=== PATIENT | male | born 1955 | race Caucasian/White ===

== ENCOUNTER 2016-10-02 06:28 | Day surgery (SDC) | payer BC, OTHER ==
[~2016-10-02] VITALS: Ht 177.8 cm; Wt 113.9 kg
[~2016-10-02 06:28] MED LIST: CEFAZOLIN 2000 MG/60 ML D5W 60 ML IV SCH; GABA800T PO; HYDR25TA5 PO; LSN20 PO; NIFE15TA PO; OXYC-164 PO; SODIUM CHLORIDE 0.9% 1000ML 1,000 ML IV SCH; SPIR25TA PO
[2016-10-02 06:46] VITALS: BP 139/84; PULSE 64; TEMP 36.6; O2SAT 96; Ht 177.8 cm; Wt 113.9 kg
[2016-10-02] MEDS ORDERED: MIDAZOLAM HCL 1 MG/ML 2ML VIAL ONE (07:41)
[2016-10-02] MEDS ORDERED: FENTANYL CITRATE INJ 50 MCG/1 ML 2 ML VIAL ONE (07:41)
[2016-10-02 07:49] VITALS: BP 139/84; PULSE 64; TEMP 36.6; O2SAT 96
--- NOTE | 2016-10-02 07:59 | Procedure Note ---
Pre-Mod Sedation Assessment General Date of Moderate Sedation: Oct 02, 2016. Vital Signs: Vital Signs Past 12 Hours Date Time Temp Pulse Resp B/P Pulse Ox O2 Delivery O2 Flow Rate FiO2 10/02/16 07:49 36.6 64 18 139/84 96 Room Air 10/02/16 06:46 36.6 64 18 139/84 96 Room Air Pre-Sedation Airway Assessment Oral Cavity: Capped Teeth Short Thick Neck: No Hx of Sleep Apnea: No Smoking Status: Former Smoker Mallampati Classification: Class I ASA Classification: Class II Notes The planned sedation has been discussed with the patient and consent obtained. I have identified the patient, determined the appropriateness of sedation and have assessed the patient immediately prior to the procedure. All medicine(s) and interventions are by my order.
--- NOTE | 2016-10-02 07:59 | History and Physical ---
History & Physical Date of Service Oct 02, 2016. History & Physical Chief Complaint: lymphoma, post infusaport History of Present Illness The patient is a 59 year old male dx'ed with lymphoma, and underwent an infusaport insertion. Pt is here now for removal of his infusaport. Denies ORELLANA , fever, chills, chest pain, SOB, abd pain, N/V, rest pain claudication, other complaints. Allergies Coded Allergies: No Known Allergies (Unverified , 02/23/14) Surgical / Medical History Hx Cardiac Surgery: No Hx Abdominal Surgery: No Hx Cancer Surgery: No Hx Thoracic Surgery: No Hx Orthopedic: No Hx Urinary Tract Surgery: No HX Other Surgery: Yes (NODE BX,HERNIA,TONSILLECTOMY) Past Medical/Surgical History: Blood Dyscrasias Family History Noncontributory Social History Smoking Status: Former Smoker Hx Tobacco Use In Past Year?: Yes Hx Alcohol Use - Type & Amnt: Yes Hx Substance Use -Type & Amnt: Yes (YOUNG) Review of Systems Constitutional: No chills, No diaphoresis Skin: No change in color Eyes: No photophobia, No visual changes ENMT: No rhinorrhea, No sore throat Respiratory: No cough, No HUDSON, No hemoptysis, No short of breath Cardiovascular: No chest pain, No palpitations, No syncope, No edema, No intermittent claudication Gastrointestinal: No abdominal pain, No diarrhea, No nausea, No vomiting Neurologic: No dizziness, No headache, No lethargy, No numbness Physical Exam: Constitutional: General Apperance: heathly-appearing, well-nourished, well-developed Level of Distress: NAD Ambulation: ambulating normally Psychiatric: Mental Status: active & alert, normal mood, normal affect Orientation: oriented except where noted, to time, to place, to person Memory: recent memory normal, remote memory normal Head: normocephalic, atraumatic Eyes: EOM: EOMI ENMT: normal ENT inspection, hearing grossly normal Neck: supple, trachea midline Lungs: Respiratory effort: no dyspnea, good air movement Auscultation: breath sounds normal, CTA except as noted, no wheezing, no rales/crackles, no rhonchi Cardiovascular: Apical Impulse: not displaced Heart Auscultation: RRR, no murmurs, no rubs, no gallops Peripheral Pulses: Pulses: full and equal, in all extremities except if noted Bruits: none appreciated Carotid Pulse: normal on the left, normal on the right Brachial Pulses: normal on the left, normal on the right Radial Pulse: normal on the left, normal on the right Femoral Pulse: normal on the left, normal on the right Posterior Tibialis Pulse: normal on the left, normal on the right Dorsalis Pedis Pulse: normal on the left, normal on the right Abdomen: Bowel Sounds: normal Inspection & Palpation: soft, non-distended, no tenderness, guarding & rebound Musculoskeletal: normal strength (5/5 throughout), normal tone Extremities: Upper Right: no cyanosis, no edema, no varicosities Upper Left: no cyanosis, no edema, no varicosities Lower Right: no cyanosis, no edema, no varicosities Lower Left: no cyanosis, no edema, no varicosities Neurologic: Cranial Nerves: grossly intact Sensation: grossly intact ASSESSMENT and PLAN: Lymphoma Post infusaport insertion Plan: Pt admitted for infusaport removal today. Procedure, risks, benefits, and alternatives were discussed with pt and present. Pt expresses understanding and agreement.
[2016-10-02] MEDS ORDERED: LIDOCAINE HCL 1% 20 ML VIAL ONE (08:20)
[2016-10-02] MEDS ORDERED: MIDAZOLAM HCL 1 MG/ML 2ML VIAL IV ONE (08:32)
[2016-10-02] MEDS ORDERED: FENTANYL CITRATE INJ 50 MCG/1 ML 2 ML VIAL IV ONE (08:32)
[2016-10-02] MEDS ORDERED: LIDOCAINE HCL 1% 20 ML VIAL INJ ONE (08:44)
--- NOTE | 2016-10-02 09:01 | Procedure Note ---
Post-Moderate Sedation Plan General Date of Moderate Sedation Oct 02, 2016. Vital Signs: Vital Signs Past 12 Hours Date Time Temp Pulse Resp B/P Pulse Ox O2 Delivery O2 Flow Rate FiO2 10/02/16 07:49 36.6 64 18 139/84 96 Room Air 10/02/16 06:46 36.6 64 18 139/84 96 Room Air Review - Discharge Plan Post Moderate Sedation Plan: On clinical assessment, the patient appears to have tolerated the conscious sedation without complications. Patient is recovering as anticipated. Patient will continue to be monitored by nursing and may be discharged when conscious sedation discharge criteria are met.
--- NOTE | 2016-10-02 09:04 | [facility] Post Operative Brief Note ---
Immediate Operative Summary Operative Date Oct 02, 2016. Pre-Operative Diagnosis Post Infusaport Post-Operative Diagnosis Same Procedure(s) Performed Removal of Aport, Moderate sedation from 0832 - [address] Boyer Forest Fire Officer Surgeon(s) Dr. Mccarthy Estimated Blood Loss 5 Findings entire catheter and port removed Specimens A: explant aport Anesthesia Local with moderate conscious sedation Complication(s) None Disposition
--- NOTE | 2016-10-02 09:07 | Discharge Instructions ---
Discharge Instructions Date of Service Oct 02, 2016. Visit Reason for Visit: Non-Hodgkin's Lymphoma Discharge Discharge Diagnosis / Problem: Post infusaport insertion Discharge Goals Goal(s): Therapeutic intervention Activity Recommendations Activity Limitations: per Instructions/Follow-up section Anesthesia . Post Anesthesia Instructions: If you have had General Anesthesia or IV Sedation: * Do not drive today. * Resume driving when surgeon permits. * Do not make important decisions or sign legal documents today. * Call surgeon for: 1. Temperature elevations greater than 101 degrees F. 2. Uncontrollable pain. 3. Excessive bleeding. 4. Persistent nausea and vomiting. 5. Medication intolerance (nausea, vomiting or rash). * For nausea and vomiting use only clear liquids such as: tea, soda, bouillon until nausea subsides, then gradually increase diet as tolerated. * If you have any concerns or questions, call your surgeon's office. If physician is unavailable and it is an emergency, call 911 or go to the nearest emergency room. . Instructions / Follow-Up Instructions / Follow-Up Call [phone] to schedule a follow up appointment if one not already scheduled. ACTIVITY RECOMMENDATIONS: See Above SPECIAL CARE INSTRUCTIONS: Call your doctor if: * Temperature above 101 degrees * Pain not relieved by pain medicine ordered * There is increased drainage or redness from any incision * You have any unanswered questions or concerns. Diet Recommendations Recommended Home Diet: resume previous diet Procedures Procedures Performed: Removal of Aport, Moderate sedation from 0832 - 0859 Pending Studies Studies pending at discharge: no Medical Emergencies . Who to Call and When: Medical Emergencies: If at any time you feel your situation is an emergency, please call 911 immediately. . Non-Emergent Contact Non-Emergency issues call your: Surgeon . . "Provider Documentation" section prepared by Taz Boyer. .
[2016-10-02 09:10] VITALS: BP 128/81; PULSE 60; TEMP 36.7; O2SAT 95
--- NOTE | 2016-10-02 09:14 | DIAGNOSTIC IMAGING REPORT ---
DATE OF PROCEDURE: 10/02/2016 PREOPERATIVE DIAGNOSIS: Previously placed Infusaport. POSTOPERATIVE DIAGNOSIS: Same. PROCEDURE: Removal of A-port and conscious sedation for 27 minutes. SURGEON: Dr. Taz Boyer. VOCATIONAL EDUCATION PROFESSIONAL: Dr. Vannessa Mccarthy. ESTIMATED BLOOD LOSS: 5. ANESTHESIA: Local plus conscious sedation. FLUIDS: 200 mL URINE OUTPUT: Not recorded. COMPLICATIONS: None apparent. CONDITION: Stable to PACU. INDICATIONS: Mr. Zay Mora is a 61-year-old male who previously had an Infusaport placed for chemotherapy and antibiotics. He no longer needs his port and was advised the risks and benefits of having it removed and agreed to undergo this procedure. PROCEDURE IN DETAIL: The patient was brought into the operative suite. A timeout occurred. The patient was prepped and draped in the usual fashion. The area around his Infusaport was anesthetized with local anesthetic. A small incision was made over his Infusaport, a pocket was developed, and his Infusaport was dissected out. The catheter was pulled and pressure was held. Hemostasis was obtained. The pocket was then closed with 3-0 and 4-0 Vicryl. The patient tolerated the procedure well and was then transported to PACU in stable condition. Complete removal of the catheter was verified under fluoroscopy. Dr. Taz Boyer was present for the entirety of this case.
[2016-10-02 09:40] VITALS: BP 124/89; PULSE 54; TEMP 36.6; O2SAT 96
[2016-10-02 10:05] VITALS: BP 139/82; PULSE 65; TEMP 36.7; O2SAT 96
== END 2016-10-02 10:10 | disposition home or self-care (01) ==
LOC: C.ACU 06:28
PROVIDERS: ATTEND Surgery Vascular Surgery
DX: Z45.2 Encounter for adjustment and management of vascular access device (principal); C85.90 Non-Hodgkin lymphoma, unspecified, unspecified site; Z87.891 Personal history of nicotine dependence

== ENCOUNTER 2019-07-17 05:40 | Inpatient (IN) ==
--- NOTE | 2019-06-30 11:00 | Anesthesiology Consultation ---
Date of Service June 30, 2019 Assessment & Plan Chart Review Chart Review: Pending: Refer to Additional Notes / Consult section (Lab results) and Patient seen in Pre Admission Testing History Surgery Operation Date: 07/17/19 10:15 Proposed Procedures p Left Total Knee Arthroplasty - Gama Thurman MD Height/Weight Height: 5 ft 10 in Weight: 123.4 kg Allergies Allergy/AdvReac Type Severity Reaction Status Date / Time No Known Allergies Allergy Unverified 06/27/19 15:32 Medications Home Medications Medication Instructions Recorded Confirmed Last Taken cholecalciferol (vitamin D3) 2,000 unit PO QAM 06/27/19 06/27/19 Unknown [Vitamin D3] gabapentin 800 mg PO BID 06/27/19 06/27/19 Unknown hydrochlorothiazide 12.5 mg PO QAM 06/27/19 06/27/19 Unknown lisinopril 20 mg PO QAM 06/27/19 06/27/19 Unknown meloxicam 7.5 mg PO QAM 06/27/19 06/27/19 Unknown nifedipine 60 mg PO QAM 06/27/19 06/27/19 Unknown oxycodone 10 mg PO QID PRN 06/27/19 06/27/19 Unknown spironolactone 12.5 mg PO QAM 06/27/19 06/27/19 Unknown Past Medical History Medical History (Updated 06/30/19 @ 10:58 by Sujit Rooney MD) History of lymphoma chemo --> 2013 Hypertension Obesity Osteoarthritis Temporomandibular joint click Tinnitus Past Family History Family History Other No family history of adverse response to anesthesia Past Surgical History Surgical History History of back surgery History of colonoscopy History of eye surgery History of inguinal hernia repair History of lymph node biopsy History of pelvic surgery History of removal of Port-a-Cath History of tonsillectomy History of tooth extraction History of vascular access device Social History Smoking Status: Former smoker tobacco type: cigarettes and smokeless tobacco Do You Dip or Chew Tobacco: Yes Smoking End Date: quit 27 years ago Hx Alcohol Use: Yes Alcohol type: hard liquor alcohol intake frequency: 3 or more drinks per day Alcohol Intake Frequency Comment: 5-6 drinks per day Hx Substance Use: No substance use type: does not use Physical Exam Vital Signs Last Vital Signs Temp 37.1 C 06/30/19 10:34 Pulse 62 06/30/19 10:34 Resp 18 06/30/19 10:34 BP 157/89 H 06/30/19 10:34 Pulse Ox 95 06/30/19 10:34 Testing Electrocardiogram Date: 06/30/19 Findings: + NSR @ (66)
--- NOTE | 2019-06-30 11:34 | XRay Report ---
XR chest Pre-admission PA/Lat CLINICAL HISTORY: Preoperative chest COMPARISON STUDY: Chest CT dated 05/12/2019 FINDINGS: The heart is normal in size. There is aortic tortuosity/ectasia. There is no focal pulmonar y consolidation. There is no failure. There are no pleural effusions. Postsurgical changes are presen t within the thoracic spine with posterior spinal rods.[ IMPRESSION: No active disease in the chest. ACT 112: Negative or not required by law. Electronically signed by: Marcelo Pimentel M.D. 06/30/2019 11:33 AM
[2019-06-30 11:38] LABS: Basophils # (auto) 0.05 K/uL (0-0.2); Basophils % (auto) 0.6 %; Eosinophils % (auto) 1.1 %; Hematocrit (blood only) 46.1 % (42-52); Hemoglobin 15.8 g/dL (14.0-18.0); Immature Granulocytes # (auto) 0.04 K/uL (0.00-0.02); Immature Granulocytes % (auto) 0.5 %; Lymphocytes # (auto) 1.77 K/uL (1.2-3.4); Lymphocytes % (auto) 20.3 %; Mean Corpuscular Hemoglobin 31.1 pg (25-34); Mean Corpuscular Hgb Conc 34.3 g/dL (32-36); Mean Corpuscular Volume 90.7 fL (80-100); Mean Platelet Volume 8.9 fL (7.4-10.4); Monocytes # (auto) 0.65 K/uL (0.11-0.59); Monocytes % (auto) 7.5 %; Neutrophils # (auto) 6.09 K/uL (1.4-6.5); Platelet Count 294 K/uL (130-400); RDW Coefficient of Variation 13.6 % (11.5-14.5); RDW Standard Deviation 44.9 fL (36.4-46.3); Red Blood Count 5.08 M/uL (4.7-6.1)
[2019-06-30 11:49] LABS: Albumin Level 4.1 gm/dl (3.4-5.0); BUN Creatinine Ratio 13.5 (10-20); Calcium 9.4 mg/dl (8.5-10.1); Creatinine Clr Calc Pharmacy 74.1 ml/min; Est GFR (African American) 65.8; Est GFR (Non-African American) 56.7; Potassium 3.8 mmol/L (3.5-5.1)
[2019-06-30 11:53] LABS: Partial Thromboplastin Time 26.8 Seconds (21.0-31.0); Prothrombin Time 10.6 Seconds (9.0-12.0)
[2019-06-30 11:57] LABS: Estimated Average Glucose 111 mg/dl; Hemoglobin A1C 5.5 % (4.5-5.6)
[2019-06-30 12:10] LABS: Appearance Urine Clear (Clear); Bacteria Urine Automated Negative (Negative); Bilirubin Urine Negative (Negative); Blood Urine Trace (Negative); Cast Urine Automated 0 /lpf (0-5); Color Urine Yellow; Epithelial Cell Urine Auto 0-5 /lpf (0-5); Glucose Urine UA Negative (Negative); Ketones Urine Negative (Negative); Leukocyte Esterase Urine Negative (Negative); Nitrite Urine Negative (Negative); Protein Urine Negative (Negative); RBC Urine Automated 0-4 /hpf (0-4); Specific Gravity Urine 1.007 (1.000-1.030); Urobilinogen Urine Negative (Negative); WBC Urine Automated 0 /hpf (0-5); pH Urine 6.5 (4.5-7.5)
--- NOTE | 2019-07-01 05:54 | Electrocardiogram Report ---
Test Reason : Blood Pressure : / mmHG Vent. Rate : 066 BPM Atrial Rate : 066 BPM P-R Int : 156 ms QRS Dur : 088 ms QT Int : 368 ms P-R-T Axes : 050 035 007 degrees QTc Int : 385 ms Normal sinus rhythm Normal ECG No previous ECGs available Confirmed by Sincere Christopher ([id number]) on 07/01/2019 5:54:10 AM Referred By: Gama Thurman Confirmed By:Sincere Christopher
--- NOTE | 2019-07-12 20:05 | History & Physical Report ---
Date of Service July 12, 2019 Assessment & Plan (1) Primary osteoarthritis of left knee: Treatment options were discussed. He has failed conservative measures as above. Risks, benefits and alternatives to surgery including but not limited to infection, DVT, pain, stiffness, need for revision surgery, damage to blood vessels, damage to nerves, PE, , were discussed with the patient and they wish to proceed. Plan will be for left total knee arthroplasty on 07/17/19 at [facility]. He will plan on attending outpatient PT upon discharge. We will plan on aspirin 81mg BID x 30 days post operatively for DVT prophylaxis. All questions answered. F/u post op. History of Present Illness Chief Complaint: Left knee pain Primary Care Provider: Isaias Oquendo MD Patient is a 64 year old male with PMHx significant for HTN and history of lymphoma presents with ongoing left knee pain. He has tried various conservative measures including cortisone injections, rehab, and antiinflammatory medications. Pain is affecting his daily activities and would like to proceed with left knee replacement. Patient denies headaches, sweats, fevers, chills, double vision, blurred vision, cough, sore throat, dysphagia, chest pain, sob, wheezing, n/v/d/c, numbness, tingling, fatigue, urinary symptoms, mood disorders. ROS positive for left knee pain and stiffness. Allergies Allergy/AdvReac Type Severity Reaction Status Date / Time No Known Allergies Allergy Unverified 06/27/19 15:32 Home Medications Home Medications Medication Instructions Recorded Confirmed Type cholecalciferol (vitamin D3) 2,000 unit PO QAM 06/27/19 06/27/19 History [Vitamin D3] gabapentin 800 mg PO BID 06/27/19 06/27/19 History hydrochlorothiazide 12.5 mg PO QAM 06/27/19 06/27/19 History lisinopril 20 mg PO QAM 06/27/19 06/27/19 History meloxicam 7.5 mg PO QAM 06/27/19 06/27/19 History nifedipine 60 mg PO QAM 06/27/19 06/27/19 History oxycodone 10 mg PO QID PRN 06/27/19 06/27/19 History spironolactone 12.5 mg PO QAM 06/27/19 06/27/19 History Past Med/Surg History Medical History History of lymphoma chemo --> 2013 Hypertension Obesity Osteoarthritis Temporomandibular joint click Tinnitus Surgical History History of back surgery History of colonoscopy History of eye surgery History of inguinal hernia repair History of lymph node biopsy History of pelvic surgery History of removal of Port-a-Cath History of tonsillectomy History of tooth extraction History of vascular access device Family History Other No family history of adverse response to anesthesia Social History Preferred Language: Yi Communication Ability: Effective Alternative Financing Specialist Required: No Beliefs That Will Affect Care: None Current Living Situation: Spouse Other Information That Helps Us Care for You: No Feels Safe at Home: Yes Safety Concerns: Feels Safe At This Time Smoking Status: Former smoker Tobacco Type: cigarettes and smokeless tobacco ; Do You Dip or Chew Tobacco: Yes ; Smoking End Date: quit 27 years ago ; Second Hand Exposure: Yes ; Tobacco Cessation Education Requested by Patient: No Hx Alcohol Use: Yes Alcohol type: hard liquor Hx Substance Use: No Review of Systems All systems reviewed & are unremarkable except as noted in HPI & below Physical Exam Constitutional: well developed and well nourished; no acute distress Eyes: PERRL, conjunctivae normal, anicteric sclerae ENMT: external ear and nose normal, oropharynx normal Neck: trachea midline, no thyromegaly Respiratory: normal respiratory effort, lungs clear to auscultation Cardiovascular: RRR, no murmur, no edema Musculoskeletal: Left knee: ROM 0-120, tenderness medial joint line. He is stable to valgus and varus stress tests with positive Oc's. Skin: no rashes, warm and dry Neurologic: patellar DTR's 2+ bilat, sensation intact Psychiatric: A+Ox3, euthymic affect Results & Data Laboratory Results Lab Results 06/30/19 06/30/19 06/30/19 Range/Units 10:45 10:45 10:45 WBC 8.70 (4.8-10.8) K/uL RBC 5.08 (4.7-6.1) M/uL Hgb 15.8 (14.0-18.0) g/dL Hct 46.1 (42-52) % MCV 90.7 (80-100) fL MCH 31.1 (25-34) pg MCHC 34.3 (32-36) g/dL RDW Std Deviation 44.9 (36.4-46.3) fL RDW Coeff of Stevenson 13.6 (11.5-14.5) % Plt Count 294 (130-400) K/uL MPV 8.9 (7.4-10.4) fL Immature Gran % (Auto) 0.5 % Neut % (Auto) 70.0 % Lymph % (Auto) 20.3 % Greer % (Auto) 7.5 % Eos % (Auto) 1.1 % Baso % (Auto) 0.6 % Immature Gran # (Auto) 0.04 H (0.00-0.02) K/uL Neut # (Auto) 6.09 (1.4-6.5) K/uL Lymph # (Auto) 1.77 (1.2-3.4) K/uL Greer # (Auto) 0.65 H (0.11-0.59) K/uL Eos # (Auto) 0.10 (0-0.5) K/uL Baso # (Auto) 0.05 (0-0.2) K/uL PT 10.6 (9.0-12.0) Seconds INR 1.0 (0.9-1.1) APTT 26.8 (21.0-31.0) Seconds PTT Ratio 1.0 Sodium 138 (136-145) mmol/L Potassium 3.8 (3.5-5.1) mmol/L Chloride 103 (98-107) mmol/L Carbon Dioxide 30 (21-32) mmol/L Anion Gap 5.0 (3-11) BUN 18 (7-18) mg/dl Creatinine 1.31 (0.6-1.4) mg/dl Est Cr Clr Drug Dosing 74.1 ml/min Est GFR ( Amer) 65.8 Est GFR (Non-Af Amer) 56.7 BUN/Creatinine Ratio 13.5 (10-20) Glucose 100 H (70-99) mg/dl Estimat Average Glucose mg/dl Hemoglobin A1c (4.5-5.6) % Calcium 9.4 (8.5-10.1) mg/dl Albumin 4.1 (3.4-5.0) gm/dl Urine Color Urine Appearance (Clear) Urine pH (4.5-7.5) Ur Specific Grafton (1.000-1.030) Urine Protein (Negative) Urine Glucose (UA) (Negative) Urine Ketones (Negative) Urine Blood (Negative) Urine Nitrite (Negative) Urine Bilirubin (Negative) Urine Urobilinogen (Negative) Ur Leukocyte Esterase (Negative) Urine WBC (Auto) (0-5) /hpf Urine RBC (Auto) (0-4) /hpf U Hyaline Cast (Auto) (0-5) /lpf U Epithel Cells (Auto) (0-5) /lpf Urine Bacteria (Auto) (Negative) Blood Type Antibody Screen 06/30/19 06/30/19 06/30/19 Range/Units 10:45 10:45 10:45 WBC (4.8-10.8) K/uL RBC (4.7-6.1) M/uL Hgb (14.0-18.0) g/dL Hct (42-52) % MCV (80-100) fL MCH (25-34) pg MCHC (32-36) g/dL RDW Std Deviation (36.4-46.3) fL RDW Coeff of Stevenson (11.5-14.5) % Plt Count (130-400) K/uL MPV (7.4-10.4) fL Immature Gran % (Auto) % Neut % (Auto) % Lymph % (Auto) % Greer % (Auto) % Eos % (Auto) % Baso % (Auto) % Immature Gran # (Auto) (0.00-0.02) K/uL Neut # (Auto) (1.4-6.5) K/uL Lymph # (Auto) (1.2-3.4) K/uL Greer # (Auto) (0.11-0.59) K/uL Eos # (Auto) (0-0.5) K/uL Baso # (Auto) (0-0.2) K/uL PT (9.0-12.0) Seconds INR (0.9-1.1) APTT (21.0-31.0) Seconds PTT Ratio Sodium (136-145) mmol/L Potassium (3.5-5.1) mmol/L Chloride (98-107) mmol/L Carbon Dioxide (21-32) mmol/L Anion Gap (3-11) BUN (7-18) mg/dl Creatinine (0.6-1.4) mg/dl Est Cr Clr Drug Dosing ml/min Est GFR ( Amer) Est GFR (Non-Af Amer) BUN/Creatinine Ratio (10-20) Glucose (70-99) mg/dl Estimat Average Glucose 111 mg/dl Hemoglobin A1c 5.5 (4.5-5.6) % Calcium (8.5-10.1) mg/dl Albumin (3.4-5.0) gm/dl Urine Color Yellow Urine Appearance Clear (Clear) Urine pH 6.5 (4.5-7.5) Ur Specific G[place] 1.007 (1.000-1.030) Urine Protein Negative (Negative) Urine Glucose (UA) Negative (Negative) Urine Ketones Negative (Negative) Urine Blood Trace H (Negative) Urine Nitrite Negative (Negative) Urine Bilirubin Negative (Negative) Urine Urobilinogen Negative (Negative) Ur Leukocyte Esterase Negative (Negative) Urine WBC (Auto) 0 (0-5) /hpf Urine RBC (Auto) 0-4 (0-4) /hpf U Hyaline Cast (Auto) 0 (0-5) /lpf U Epithel Cells (Auto) 0-5 (0-5) /lpf Urine Bacteria (Auto) Negative (Negative) Blood Type O Positive Antibody Screen NEGATIVE Diagnostic Findings Left knee radiographs: Bone on bone medial compartment with periarticular osteophyte formation and subchondral sclerosis.
[2019-07-17] MEDS ORDERED: LR 500ML BOLUS, THEN 15ML/HR IV SCH (06:00)
[2019-07-17] MEDS ORDERED: FAMOTIDINE 20 MG TAB PO SCH (06:00)
[2019-07-17] MEDS ORDERED: ROPIVACAINE 0.5% HCL/PF 150 MG, BUPIVACAINE 0.5% MPF 30 ML, EPINEPHrine 30MG/30ML (OR U... INSTIL SCH (06:00)
[2019-07-17] MEDS ORDERED: TRANEXAMIC ACID 1,000 MG **IV Intra-op IV SCH (06:00)
[2019-07-17] MEDS ORDERED: CeleBREX 200 MG CAP PO SCH ×2 (06:00→21:00)
[2019-07-17] MEDS ORDERED: dexAMETHasone 4 MG TAB PO SCH (06:00)
[2019-07-17] MEDS ORDERED: ACETAMINOPHEN 500 MG TAB PO SCH (06:00)
[2019-07-17] MEDS ORDERED: TRANEXAMIC ACID 1,000 MG **IV Pre-op IV SCH (06:00)
[2019-07-17] MEDS ORDERED: GABAPENTIN 300 MG CAP PO SCH (06:00)
[2019-07-17] MEDS ORDERED: METOCLOPRAMIDE HCL 10 MG TABLET PO SCH (06:00)
[2019-07-17] MEDS ORDERED: CEFAZOLIN 3000MG 72.5 ML IV SCH (06:00)
[2019-07-17] MEDS ORDERED: HYDROmorphone INJ 2 MG/ML SYR/VIAL IV PRN (06:38)
[2019-07-17] MEDS ORDERED: ONDANSETRON INJ 2 MG/ML 2 ML VIAL IV PRN ×2 (06:38→12:18)
[2019-07-17] MEDS ORDERED: ATROPINE SULFATE 0.1 MG/ML 10ML SYR IV PRN (06:38)
[2019-07-17] MEDS ORDERED: fentaNYL citrate 100 MCG/2 ML VIAL IV PRN (06:38)
[2019-07-17] MEDS ORDERED: ePHEDrine sulfate 50 MG/ML AMP IV PRN (06:38)
[2019-07-17] MEDS ORDERED: BUPIVACAINE 0.5 % 5 MG/1 ML PF 10ML VIAL ONE (06:48)
[2019-07-17] MEDS ORDERED: BUPIVACAINE/EPINEPHRINE 0.25% 1:200,000 30 ML VIAL ONE (06:48)
[2019-07-17] MEDS ORDERED: PROPOFOL IV EMULSION 10 MG/ML 20 ML VIAL IV ONE ×3 (07:53→09:28)
[2019-07-17] MEDS ORDERED: LIDOCAINE HCL 2% 2 ML VIAL/AMP(20MG/ML) INFIL ONE (07:53)
[2019-07-17] MEDS ORDERED: DEXAMETHASONE SOD INJ 4 MG/ML VIAL ONE (07:53)
[2019-07-17] MEDS ORDERED: ONDANSETRON INJ 2 MG/ML 2 ML VIAL ONE (07:53)
[2019-07-17] MEDS ORDERED: MIDAZOLAM HCL 1 MG/ML 2ML VIAL ONE ×4 (07:53→10:04)
[2019-07-17] MEDS ORDERED: fentaNYL citrate 100 MCG/2 ML VIAL ONE (07:53)
[2019-07-17] MEDS ORDERED: BACITRACIN INJ 50,000 UNIT VIAL ONE (08:04)
--- NOTE | 2019-07-17 08:33 | History & Physical Bridge Note ---
Date of Service July 17, 2019 History & Physical Bridge Note I have examined the patient, reviewed the History & Physical and in the interval since the performance of the History & Physical I have noted the following changes of clinical significance: no changes noted
[2019-07-17] MEDS ORDERED: DiphenhydrAMINE HCL 50 MG/ML VIAL ONE (09:49)
--- NOTE | 2019-07-17 10:18 | Operative Report ---
Post Operative Report Pre & Post Diagnosis Operation Date: 07/17/19 08:15 Pre-Op Diagnosis: Left Knee Primary Osteoarthritis Post-Op Diagnosis: Left Knee Primary Osteoarthritis I identified the patient and participated in the time-out.: Yes Procedure Operation Date: 07/17/19 08:15 Actual Procedures p Left Total Knee Arthroplasty(Left) - Gama Thurman MD Surgeon Gama Thurman MD Reaming Press Operator Afshin Rossi PA-C Estimated Blood Loss 20 Findings Consistent with Post-Op Diagnosis Specimens bone and tissue Drains 1 Hemovac Anesthesia Type MAC Spinal Regional Disposition Accompanied Patient To Recovery: No Disposition: Recovery Room Indications The patient is a 64-year-old male longstanding pain in the left knee. He is [id number] medial compartment. He is failed conservative measures, injection anti-inflammatories and rehab wishes to proceed with left total knee arthroplasty Description of Procedure Risks benefits and alternatives of surgery including but not limited to infection, DVT, pain, stiffness, need for surgery, damage to blood vessels, damage to nerves or risks of anesthesia were discussed with the patient and they wished to proceed. The patient was identified and the laterality was confirmed and marked. They received a preoperative antibiotic as well as a spinal anesthetic and an abductor canal block. A well-padded tourniquet was applied and then the limb was prepped and draped in standard manner with ChloraPrep. The limb was exsanguinated and the tourniquet was inflated. I made a standard anterior incision. I sharply incised the skin then utilized Bovie electrocautery to achieve hemostasis. I made a medial parapatellar arthrotomy and mobilized the patella laterally. I then excised the anterior horns of the medial and lateral meniscus as well as the infrapatellar fat pad. I elevated a portion of the MCL off of the tibia. I then pinned into place a patient-matched distal femoral cutting guide and made my distal femoral resection. I then pinned into place the 5 in 1 femoral cutting guide. I made my anterior, posterior and chamfer cuts. I then excised the cruciates and the remaining portions of the menisci. I then pinned into place a patient- matched tibial cutting guide and made my tibial resection. I then pinned into place the tibial plate a utilizing alignment hipolito to confirm rotation. I then cut for the post. Utilizing a lamina mixing and dispensing supervisor and I then removed posterior osteophytes off the femur. I then placed a trial femur into position and cut for the trochlear component. I then sequentially trialed to size the polyethylene until there was good soft tissue balancing and range of motion. I then prepared the patella with a freehand cut utilizing sagittal saw. I sized and drilled for the patella. There was good tracking to the patella no lateral release was needed. All the trial components were removed. The deep tissues were anesthetized with an ortho mix solution. Then with Simplex HV with gentamicin cement, I cemented my definitive components. Definitive components, Flor and Nephew Jasperney 2: Femur 7 Tibia 6 Poly 11 Patella 38 oval A betadine soak was performed. A deep drain was placed. The arthrotomy was closed with interrupted #1 Vicryl suture subcutaneous tissue was closed with interrupted 2-0 Vicryl suture. The skin was closed with with pavithra. An Acticoat and Kavon dressing were placed. Sterile dressings were applied. All needle and sponge counts were correct at the end of the procedure patient was transferred to the PACU in stable condition without apparent complication. The PA-C was necessary for assistance with procedure for assistance in positioning, prepping, draping, retraction and closure. I attest to the content of the Intraoperative Record and any orders documented therein. Any exceptions are noted below.
--- NOTE | 2019-07-17 11:39 | Anesthesiology Progress Note ---
Date of Service July 17, 2019 Anesthesia Post Procedure Vital Signs Vital Signs: Temp Pulse Pulse Resp BP BP Pulse Ox 07/17/19 11:35 65 15 106/69 98 07/17/19 11:20 36.7 C 67 14 111/76 96 07/17/19 11:10 65 15 107/71 99 07/17/19 11:00 36.1 C L 81 14 138/84 95 07/17/19 10:53 36.1 C L 63 16 122/75 96 07/17/19 06:46 36.9 C 72 18 144/87 H 95 Transfer of Care Handoff Completed per policy Notes Mental Status: alert / awake / arousable and participated in evaluation Patient Amnestic to Procedure: Yes Nausea / Vomiting: adequately controlled Pain: adequately controlled Airway Patency, RR, SpO2: stable & adequate BP & HR: stable & adequate Hydration State: stable & adequate Anesthetic Complications: no major complications apparent and Pt Satisfied with anesthetic care
--- NOTE | 2019-07-17 12:07 | XRay Report ---
XR knee LT 1 or 2V routine CLINICAL HISTORY: Surgical Post Op COMPARISON: None FINDINGS: Alignment of the total left knee arthroplasty is anatomic. Skin pavithra are present as wel l as surgical drains. There are no unexpected radiopaque foreign bodies. Lateral view demonstrates a subtle lucency with sclerotic margin within the proximal posterior left tibia. IMPRESSION: 1. Status post total left knee arthroplasty. Hardware intact. No unexpected radiopaque foreign bodies . 2. Subtle lucency with sclerotic margin projecting over the proximal posterior left tibia on lateral projection. This does not appear to represent a fracture and could be artifactual. However, correlati on with preoperative radiographs, if available, is recommended. ACT 112: Negative or not required by law. Electronically signed by: Pérez Post M.D. 07/17/2019 12:06 PM
[2019-07-17] MEDS ORDERED: MAGNESIUM HYDROXIDE SUSP 30 ML UDC PO PRN (12:18)
[2019-07-17] MEDS ORDERED: HYDROmorphone INJ 0.5 MG/0.5 ML SYR IV PRN (12:18)
[2019-07-17] MEDS ORDERED: METOCLOPRAMIDE HCL INJ 5 MG/ML 2 ML VIAL IV PRN (12:18)
[2019-07-17] MEDS ORDERED: TAMSULOSIN HCL 0.4 MG CAP PO PRN (12:18)
[2019-07-17] MEDS ORDERED: bisacodyL 10 MG SUPP PR PRN (12:18)
[2019-07-17] MEDS ORDERED: NALOXONE HCL 0.4 MG/1 ML VIAL/CARP IV PRN (12:18)
[2019-07-17] MEDS: SODIUM CHLORIDE 0.9% 1000ML 1,000 ML IV SCH ×2 (12:43→21:53)
[2019-07-17] MEDS: OXYCODONE HCL IR 5 MG TAB (IMMEDIATE RELEASE) PO PRN ×3 (13:27→22:51)
[2019-07-17] MEDS: ACETAMINOPHEN 500 MG TAB PO SCH ×2 (13:28→21:54)
[2019-07-17] MEDS: CEFAZOLIN 2000MG 2,000 MG/15 ML SYR IV SCH ×2 (17:11→23:38)
[2019-07-17] MEDS: GABAPENTIN 800 MG TAB PO SCH (20:34)
[2019-07-17] MEDS: ASPIRIN 81 MG ECTAB PO SCH (20:34)
[2019-07-17] MEDS: DOCUSATE SODIUM 100 MG CAP PO SCH (20:34)
[2019-07-17] MEDS: SENNA 8.6 MG TAB PO SCH (20:34)
[2019-07-18] MEDS: ACETAMINOPHEN 500 MG TAB PO SCH ×3 (04:46→21:34)
[2019-07-18] MEDS: OXYCODONE HCL IR 5 MG TAB (IMMEDIATE RELEASE) PO PRN ×5 (04:46→21:33)
[2019-07-18 04:58] LABS: Hematocrit (blood only) 36.8 % (42-52); Hemoglobin 12.3 g/dL (14.0-18.0); Mean Corpuscular Hgb Conc 33.4 g/dL (32-36); Mean Corpuscular Volume 92.7 fL (80-100); Mean Platelet Volume 8.6 fL (7.4-10.4); Platelet Count 203 K/uL (130-400); RDW Coefficient of Variation 13.6 % (11.5-14.5); RDW Standard Deviation 46.3 fL (36.4-46.3); Red Blood Count 3.97 M/uL (4.7-6.1); White Blood Count 6.93 K/uL (4.8-10.8)
[2019-07-18 05:31] LABS: BUN Creatinine Ratio 14.5 (10-20); Calcium 8.2 mg/dl (8.5-10.1); Est GFR (Non-African American) 44.9; Potassium 4.5 mmol/L (3.5-5.1)
--- NOTE | 2019-07-18 07:22 | Orthopedic Progress Note ---
Date of Service July 18, 2019 Assessment & Plan (1) Primary osteoarthritis of left knee: POD#1 Left TKA -Pain management -PT/OT -DVT prophylaxis-ASA 81mg BID x 30 days, SCDs, TEDs -Discharge planning-home with plans on OPPT, likely tomorrow when pain is better under control -AM labs-Hemoglobin 12.3, acute blood loss anemia due to surgical loss vs dilutional effect. Creatinine is elevated to 1.59 from 1.31 on preop labs. Will hold his Celebrex this morning. Will give Bolus this morning as well. Recheck labs in AM. Subjective Patient is POD#1 left TKA. He is having pain this morning and was unable to sleep. States the oxycodone tends to keep him up. He is on oxy ir chronically, usually taking 10mg BID at home. No other complaints at this time. Denies chest pain, sob, n/v/d. Review of Systems Review of Systems: All systems reviewed & are unremarkable except as noted in HPI & below Physical Exam Physical Exam: Left knee dressing is c/d/i. ALEYDA is suctioning, hemovac in place. Good dorsiflexion. Toes are mobile. No calf tenderness. Distally n/v status and sensation intact. Constitutional: well developed and well nourished; no acute distress Results & Data ([facility]) Vital Signs (Past 12 Hours) Vital Signs Temp Pulse Resp BP Pulse Ox 07/18/19 03:31 37.0 C 65 18 123/83 93 07/17/19 23:10 36.8 C 71 18 137/87 94 07/17/19 19:46 37.1 C 74 18 145/93 H 95 Laboratory Results H & H 06/30/19 07/18/19 Range/Units 10:45 04:35 Hgb 15.8 12.3 L (14.0-18.0) g/dL Hct 46.1 36.8 L (42-52) % Coagulation 06/30/19 Range/Units 10:45 INR 1.0 (0.9-1.1)
[2019-07-18] MEDS ORDERED: SODIUM CHLORIDE 0.9% 1000ML 500 ML IV ONE (07:26)
[2019-07-18] MEDS: CHOLECALCIFEROL 1,000 UNITS 25 MCG TAB PO SCH (08:33)
[2019-07-18] MEDS: lisinopriL 20 MG TAB PO SCH (08:33)
[2019-07-18] MEDS: SPIRONOLACTONE 25 MG TAB PO SCH (08:33)
[2019-07-18] MEDS: MULTIVITAMIN TAB PO SCH (08:34)
[2019-07-18] MEDS: hydroCHLOROthiazide 25 MG TAB PO SCH (08:34)
[2019-07-18] MEDS: NIFEdipine EXTENDED REL 30 MG TABCR PO SCH (08:34)
[2019-07-18] MEDS: GABAPENTIN 800 MG TAB PO SCH ×2 (08:34→20:13)
[2019-07-18] MEDS: DOCUSATE SODIUM 100 MG CAP PO SCH ×2 (08:35→20:14)
[2019-07-18] MEDS: ASPIRIN 81 MG ECTAB PO SCH ×2 (08:35→20:13)
--- NOTE | 2019-07-18 08:41 | Anesthesiology Progress Note ---
Date of Service July 18, 2019 Anesthesia Post Procedure Vital Signs Vital Signs: Temp Pulse Pulse Resp BP BP Pulse Ox 07/18/19 07:30 36.8 C 69 18 130/98 93 07/18/19 03:31 37.0 C 65 18 123/83 93 07/17/19 23:10 36.8 C 71 18 137/87 94 07/17/19 19:46 37.1 C 74 18 145/93 H 95 07/17/19 15:10 36.7 C 71 17 139/88 96 07/17/19 14:02 36.7 C 85 18 126/74 96 07/17/19 13:01 36.4 C L 76 16 141/89 H 99 07/17/19 12:30 36.5 C 73 18 137/83 100 07/17/19 12:00 36.9 C 70 18 120/78 95 07/17/19 11:35 65 15 106/69 98 07/17/19 11:20 36.7 C 67 14 111/76 96 07/17/19 11:10 65 15 107/71 99 07/17/19 11:00 36.1 C L 81 14 138/84 95 07/17/19 10:53 36.1 C L 63 16 122/75 96 Pain Intensity Left Knee: Pain Intensity: 7 Notes Mental Status: alert / awake / arousable and participated in evaluation Patient Amnestic to Procedure: Yes Nausea / Vomiting: adequately controlled Pain: adequately controlled Airway Patency, RR, SpO2: stable & adequate BP & HR: stable & adequate Hydration State: stable & adequate Neuraxial Anesthesia: was administered and sensory block resolved Anesthetic Complications: no major complications apparent and Pt Satisfied with anesthetic care
[2019-07-18] MEDS: SENNA 8.6 MG TAB PO SCH (20:13)
[2019-07-19] MEDS: OXYCODONE HCL IR 5 MG TAB (IMMEDIATE RELEASE) PO PRN ×2 (05:45→09:51)
[2019-07-19] MEDS: ACETAMINOPHEN 500 MG TAB PO SCH (05:45)
[2019-07-19 07:18] LABS: BUN Creatinine Ratio 10.4 (10-20); Creatinine Clr Calc Pharmacy 78.8 ml/min; Est GFR (Non-African American) 61.2; Potassium 3.8 mmol/L (3.5-5.1)
--- NOTE | 2019-07-19 07:40 | Orthopedic Progress Note ---
Date of Service July 19, 2019 Assessment & Plan (1) Primary osteoarthritis of left knee: POD#2 Left TKA -Pain management -PT/OT -DVT prophylaxis-ASA 81mg BID x 30 days, SCDs, TEDs -Discharge planning-plan for outpatient PT. Patient's pain control is adequate and with his creatinine normalizing, plan will be to discharge to home this morning. -AM labs- Creatinine this morning is 1.2 Subjective Postop day 2 status post left total knee arthroplasty Patient is currently sitting up in bed watching TV. Appears comfortable. He has no complaints this morning other than some mild pain in the operative knee. Denies shortness of breath, chest pain, lightheadedness. He is hoping to go home today. Physical Exam Physical Exam: Kavon dressing is clean, dry, and intact. Calves are soft and nontender. Neurovascular intact. Toes are mobile. He has good dorsiflexion and plantarflexion of the left ankle and foot. Results & Data ([facility]) Vital Signs (Past 12 Hours) Vital Signs Temp Pulse Resp BP Pulse Ox 07/19/19 06:16 37.1 C 07/19/19 06:10 37.7 C H 87 16 145/90 H 94 07/18/19 23:43 37.3 C 76 18 143/83 H 94 Laboratory Results Laboratory Results WBC 6.93 K/uL (4.8-10.8) 07/18/19 04:35 RBC 3.97 M/uL (4.7-6.1) L 07/18/19 04:35 Hgb 12.3 g/dL (14.0-18.0) L 07/18/19 04:35 Hct 36.8 % (42-52) L 07/18/19 04:35 MCV 92.7 fL (80-100) 07/18/19 04:35 MCH 31.0 pg (25-34) 07/18/19 04:35 MCHC 33.4 g/dL (32-36) 07/18/19 04:35 RDW Std Deviation 46.3 fL (36.4-46.3) 07/18/19 04:35 RDW Coeff of [place] 13.6 % (11.5-14.5) 07/18/19 04:35 Plt Count 203 K/uL (130-400) 07/18/19 04:35 MPV 8.6 fL (7.4-10.4) 07/18/19 04:35 Immature Gran % (Auto) 0.5 % 06/30/19 10:45 Neut % (Auto) 70.0 % 06/30/19 10:45 Lymph % (Auto) 20.3 % 06/30/19 10:45 [place] % (Auto) 7.5 % 06/30/19 10:45 Eos % (Auto) 1.1 % 06/30/19 10:45 Baso % (Auto) 0.6 % 06/30/19 10:45 Immature Gran # (Auto) 0.04 K/uL (0.00-0.02) H 06/30/19 10:45 Neut # (Auto) 6.09 K/uL (1.4-6.5) 06/30/19 10:45 Lymph # (Auto) 1.77 K/uL (1.2-3.4) 06/30/19 10:45 [place] # (Auto) 0.65 K/uL (0.11-0.59) H 06/30/19 10:45 Eos # (Auto) 0.10 K/uL (0-0.5) 06/30/19 10:45 Baso # (Auto) 0.05 K/uL (0-0.2) 06/30/19 10:45 PT 10.6 Seconds (9.0-12.0) 06/30/19 10:45 INR 1.0 (0.9-1.1) 06/30/19 10:45 APTT 26.8 Seconds (21.0-31.0) 06/30/19 10:45 PTT Ratio 1.0 06/30/19 10:45 Sodium 138 mmol/L (136-145) 07/19/19 05:57 Potassium 3.8 mmol/L (3.5-5.1) D 07/19/19 05:57 Chloride 106 mmol/L (98-107) 07/19/19 05:57 Carbon Dioxide 26 mmol/L (21-32) 07/19/19 05:57 Anion Gap 6.0 (3-11) 07/19/19 05:57 BUN 13 mg/dl (7-18) 07/19/19 05:57 Creatinine 1.23 mg/dl (0.6-1.4) D 07/19/19 05:57 Est Cr Clr Drug Dosing 78.8 ml/min 07/19/19 05:57 Est GFR ( Amer) 71.0 07/19/19 05:57 Est GFR (Non-Af Amer) 61.2 07/19/19 05:57 BUN/Creatinine Ratio 10.4 (10-20) 07/19/19 05:57 Glucose 102 mg/dl (70-99) H 07/19/19 05:57 Estimat Average Glucose 111 mg/dl 06/30/19 10:45 Hemoglobin A1c 5.5 % (4.5-5.6) 06/30/19 10:45 Calcium 9.0 mg/dl (8.5-10.1) 07/19/19 05:57 Albumin 4.1 gm/dl (3.4-5.0) 06/30/19 10:45 Urine Color Yellow 06/30/19 10:45 Urine Appearance Clear (Clear) 06/30/19 10:45 Urine pH 6.5 (4.5-7.5) 06/30/19 10:45 Ur Specific [place] 1.007 (1.000-1.030) 06/30/19 10:45 Urine Protein Negative (Negative) 06/30/19 10:45 Urine Glucose (UA) Negative (Negative) 06/30/19 10:45 Urine Ketones Negative (Negative) 06/30/19 10:45 Urine Blood Trace (Negative) H 06/30/19 10:45 Urine Nitrite Negative (Negative) 06/30/19 10:45 Urine Bilirubin Negative (Negative) 06/30/19 10:45 Urine Urobilinogen Negative (Negative) 06/30/19 10:45 Ur Leukocyte Esterase Negative (Negative) 06/30/19 10:45 Urine WBC (Auto) 0 /hpf (0-5) 06/30/19 10:45 Urine RBC (Auto) 0-4 /hpf (0-4) 06/30/19 10:45 U Hyaline Cast (Auto) 0 /lpf (0-5) 06/30/19 10:45 U Epithel Cells (Auto) 0-5 /lpf (0-5) 06/30/19 10:45 Urine Bacteria (Auto) Negative (Negative) 06/30/19 10:45 Blood Type O Positive 06/30/19 10:45 Antibody Screen NEGATIVE 06/30/19 10:45
[2019-07-19] MEDS: DOCUSATE SODIUM 100 MG CAP PO SCH (07:57)
[2019-07-19] MEDS: MULTIVITAMIN TAB PO SCH (07:57)
[2019-07-19] MEDS: CHOLECALCIFEROL 1,000 UNITS 25 MCG TAB PO SCH (07:57)
[2019-07-19] MEDS: NIFEdipine EXTENDED REL 30 MG TABCR PO SCH (07:57)
[2019-07-19] MEDS: hydroCHLOROthiazide 25 MG TAB PO SCH (07:58)
[2019-07-19] MEDS: lisinopriL 20 MG TAB PO SCH (07:58)
[2019-07-19] MEDS: SPIRONOLACTONE 25 MG TAB PO SCH (07:58)
[2019-07-19] MEDS: GABAPENTIN 800 MG TAB PO SCH (07:59)
[2019-07-19] MEDS: ASPIRIN 81 MG ECTAB PO SCH (07:59)
--- NOTE | 2019-07-20 15:15 | Discharge Summary ---
Date of Service July 20, 2019 Admission HPI Per Admitting Provider Patient is a 64 year old male with PMHx significant for HTN and history of lymphoma presents with ongoing left knee pain. He has tried various conservative measures including cortisone injections, rehab, and antiinflammatory medications. Pain is affecting his daily activities and would like to proceed with left knee replacement. Patient denies headaches, sweats, fevers, chills, double vision, blurred vision, cough, sore throat, dysphagia, chest pain, sob, wheezing, n/v/d/c, numbness, tingling, fatigue, urinary symptoms, mood disorders. ROS positive for left knee pain and stiffness. Admission Exam Per Admitting Provider Constitutional: well developed and well nourished; no acute distress Eyes: PERRL, conjunctivae normal, anicteric sclerae ENMT: external ear and nose normal, oropharynx normal Neck: trachea midline, no thyromegaly Respiratory: normal respiratory effort, lungs clear to auscultation Cardiovascular: RRR, no murmur, no edema Musculoskeletal: Left knee: ROM 0-120, tenderness medial joint line. He is stable to valgus and varus stress tests with positive Oc's. Skin: no rashes, warm and dry Neurologic: patellar DTR's 2+ bilat, sensation intact Psychiatric: A+Ox3, euthymic affect Principal Diagnosis Left knee osteoarthritis Discharge Exam Constitutional well developed and well nourished; no acute distress Eyes PERRL, conjunctivae normal, anicteric sclerae ENMT external ear and nose normal, oropharynx normal Neck trachea midline, no thyromegaly Respiratory normal respiratory effort, lungs clear to auscultation Cardiovascular RRR, no murmur, no edema Skin no rashes, warm and dry Neurologic patellar DTR's 2+ bilat, sensation intact Psychiatric A+Ox3, euthymic affect Discharge Data Allergies Allergy/AdvReac Type Severity Reaction Status Date / Time steroids AdvReac Unknown Unknown Uncoded 07/17/19 06:56 Consultations 07/17/19 12:18 Consult Case Management - Discharge Planning Routine Procedures Performed Operation Date: 07/17/19 08:15 Actual Procedures p Left Total Knee Arthroplasty(Left) - Gama Thurman MD Ordered Studies 07/17/19 05:00 US - OR guided needle placemen Routine Hospital Course (1) Primary osteoarthritis of left knee: Patient presented for same day admission following left total knee arthroplasty on 07/17/19. He tolerated procedure well. The Patient had an uneventful hospital course. Post-operatively, his activity was progressed and well tolerated. They participated in PT with ambulation distance of 200 feet. ROM of operative knee reached 85 degrees. On POD#1 patient had an elevated creatine from baseline. He was given a bolus of fluid and by POD#2 his creatine levels had returned to baseline. Remainder of labs remained stable- lowest hemoglobin recorded:12.3. Pain controlled on oral medications. Please refer to daily progress notes and PT notes for complete details. After exam on 07/19/19, patient was felt to be stable for discharge home with plans on attending outpatient PT. Patient will f/u in the office in about 2 weeks for further evalu ation including x-rays and incision check, sooner if having any issues or concerns. Lab Results 06/30/06/30/06/30/19 Range/Units 10:45 10:45 10:45 WBC 8.70 (4.8-10.8) K/uL RBC 5.08 (4.7-6.1) M/uL Hgb 15.8 (14.0-18.0) g/dL Hct 46.1 (42-52) % MCV 90.7 (80-100) fL MCH 31.1 (25-34) pg MCHC 34.3 (32-36) g/dL RDW Std Deviation 44.9 (36.4-46.3) fL RDW Coeff of [place] 13.6 (11.5-14.5) % Plt Count 294 (130-400) K/uL MPV 8.9 (7.4-10.4) fL Immature Gran % (Auto) 0.5 % Neut % (Auto) 70.0 % Lymph % (Auto) 20.3 % [place] % (Auto) 7.5 % Eos % (Auto) 1.1 % Baso % (Auto) 0.6 % Immature Gran # (Auto) 0.04 H (0.00-0.02) K/uL Neut # (Auto) 6.09 (1.4-6.5) K/uL Lymph # (Auto) 1.77 (1.2-3.4) K/uL [place] # (Auto) 0.65 H (0.11-0.59) K/uL Eos # (Auto) 0.10 (0-0.5) K/uL Baso # (Auto) 0.05 (0-0.2) K/uL PT 10.6 (9.0-12.0) Seconds INR 1.0 (0.9-1.1) APTT 26.8 (21.0-31.0) Seconds PTT Ratio 1.0 Sodium 138 (136-145) mmol/L Potassium 3.8 (3.5-5.1) mmol/L Chloride 103 (98-107) mmol/L Carbon Dioxide 30 (21-32) mmol/L Anion Gap 5.0 (3-11) BUN 18 (7-18) mg/dl Creatinine 1.31 (0.6-1.4) mg/dl Est Cr Clr Drug Dosing 74.1 ml/min Est GFR ( Amer) 65.8 Est GFR (Non-Af Amer) 56.7 BUN/Creatinine Ratio 13.5 (10-20) Glucose 100 H (70-99) mg/dl Estimat Average Glucose mg/dl Hemoglobin A1c (4.5-5.6) % Calcium 9.4 (8.5-10.1) mg/dl Albumin 4.1 (3.4-5.0) gm/dl Urine Color Urine Appearance (Clear) Urine pH (4.5-7.5) Ur Specific [place] (1.000-1.030) Urine Protein (Negative) Urine Glucose (UA) (Negative) Urine Ketones (Negative) Urine Blood (Negative) Urine Nitrite (Negative) Urine Bilirubin (Negative) Urine Urobilinogen (Negative) Ur Leukocyte Esterase (Negative) Urine WBC (Auto) (0-5) /hpf Urine RBC (Auto) (0-4) /hpf U Hyaline Cast (Auto) (0-5) /lpf U Epithel Cells (Auto) (0-5) /lpf Urine Bacteria (Auto) (Negative) Blood Type Antibody Screen 06/30/19 06/30/19 06/30/19 Range/Units 10:45 10:45 10:45 WBC (4.8-10.8) K/uL RBC (4.7-6.1) M/uL Hgb (14.0-18.0) g/dL Hct (42-52) % MCV (80-100) fL MCH (25-34) pg MCHC (32-36) g/dL RDW Std Deviation (36.4-46.3) fL RDW Coeff of [place] (11.5-14.5) % Plt Count (130-400) K/uL MPV (7.4-10.4) fL Immature Gran % (Auto) % Neut % (Auto) % Lymph % (Auto) % [place] % (Auto) % Eos % (Auto) % Baso % (Auto) % Immature Gran # (Auto) (0.00-0.02) K/uL Neut # (Auto) (1.4-6.5) K/uL Lymph # (Auto) (1.2-3.4) K/uL [place] # (Auto) (0.11-0.59) K/uL Eos # (Auto) (0-0.5) K/uL Baso # (Auto) (0-0.2) K/uL PT (9.0-12.0) Seconds INR (0.9-1.1) APTT (21.0-31.0) Seconds PTT Ratio Sodium (136-145) mmol/L Potassium (3.5-5.1) mmol/L Chloride (98-107) mmol/L Carbon Dioxide (21-32) mmol/L Anion Gap (3-11) BUN (7-18) mg/dl Creatinine (0.6-1.4) mg/dl Est Cr Clr Drug Dosing ml/min Est GFR ( Amer) Est GFR (Non-Af Amer) BUN/Creatinine Ratio (10-20) Glucose (70-99) mg/dl Estimat Average Glucose 111 mg/dl Hemoglobin A1c 5.5 (4.5-5.6) % Calcium (8.5-10.1) mg/dl Albumin (3.4-5.0) gm/dl Urine Color Yellow Urine Appearance Clear (Clear) Urine pH 6.5 (4.5-7.5) Ur Specific [place] 1.007 (1.000-1.030) Urine Protein Negative (Negative) Urine Glucose (UA) Negative (Negative) Urine Ketones Negative (Negative) Urine Blood Trace H (Negative) Urine Nitrite Negative (Negative) Urine Bilirubin Negative (Negative) Urine Urobilinogen Negative (Negative) Ur Leukocyte Esterase Negative (Negative) Urine WBC (Auto) 0 (0-5) /hpf Urine RBC (Auto) 0-4 (0-4) /hpf U Hyaline Cast (Auto) 0 (0-5) /lpf U Epithel Cells (Auto) 0-5 (0-5) /lpf Urine Bacteria (Auto) Negative (Negative) Blood Type O Positive Antibody Screen NEGATIVE 07/18/19 07/18/19 07/19/19 Range/Units 04:35 04:35 05:57 WBC 6.93 (4.8-10.8) K/uL RBC 3.97 L (4.7-6.1) M/uL Hgb 12.3 L (14.0-18.0) g/dL Hct 36.8 L (42-52) % MCV 92.7 (80-100) fL MCH 31.0 (25-34) pg MCHC 33.4 (32-36) g/dL RDW Std Deviation 46.3 (36.4-46.3) fL RDW Coeff of [place] 13.6 (11.5-14.5) % Plt Count 203 (130-400) K/uL MPV 8.6 (7.4-10.4) fL Immature Gran % (Auto) % Neut % (Auto) % Lymph % (Auto) % [place] % (Auto) % Eos % (Auto) % Baso % (Auto) % Immature Gran # (Auto) (0.00-0.02) K/uL Neut # (Auto) (1.4-6.5) K/uL Lymph # (Auto) (1.2-3.4) K/uL [place] # (Auto) (0.11-0.59) K/uL Eos # (Auto) (0-0.5) K/uL Baso # (Auto) (0-0.2) K/uL PT (9.0-12.0) Seconds INR (0.9-1.1) APTT (21.0-31.0) Seconds PTT Ratio Sodium 140 138 (136-145) mmol/L Potassium 4.5 3.8 D (3.5-5.1) mmol/L Chloride 109 H 106 (98-107) mmol/L Carbon Dioxide 29 26 (21-32) mmol/L Anion Gap 2.0 L 6.0 (3-11) BUN 23 H 13 (7-18) mg/dl Creatinine 1.59 H 1.23 D (0.6-1.4) mg/dl Est Cr Clr Drug Dosing 61.0 78.8 ml/min Est GFR ( Amer) 52.0 71.0 Est GFR (Non-Af Amer) 44.9 61.2 BUN/Creatinine Ratio 14.5 10.4 (10-20) Glucose 105 H 102 H (70-99) mg/dl Estimat Average Glucose mg/dl Hemoglobin A1c (4.5-5.6) % Calcium 8.2 L 9.0 (8.5-10.1) mg/dl Albumin (3.4-5.0) gm/dl Urine Color Urine Appearance (Clear) Urine pH (4.5-7.5) Ur Specific [place] (1.000-1.030) Urine Protein (Negative) Urine Glucose (UA) (Negative) Urine Ketones (Negative) Urine Blood (Negative) Urine Nitrite (Negative) Urine Bilirubin (Negative) Urine Urobilinogen (Negative) Ur Leukocyte Esterase (Negative) Urine WBC (Auto) (0-5) /hpf Urine RBC (Auto) (0-4) /hpf U Hyaline Cast (Auto) (0-5) /lpf U Epithel Cells (Auto) (0-5) /lpf Urine Bacteria (Auto) (Negative) Blood Type Antibody Screen Total Time Total Time Spent Total Time Spent (In Minutes): 20 Discharge Plan Discharge Items Patient Disposition: Home - Self-Care Reason For Visit: LEFT KNEE OSTEOARTHRITIS Discharge Diagnosis: Left knee osteoarthritis Activity: Per Instructions section Weightbearing: Full weightbearing Weightbearing Comment: As tolerated with walker Non-emergency contact: Surgeon Call non-emergency contact if: your pain is not controlled, your temperature is above 101.5, your wound has increased redness and your wound has increased drainage Follow-up/Referrals: Isaias Oquendo MD [Primary Care Provider] - Diet: Regular Addtl Attending Provider Instructions: ACTIVITY RECOMMENDATIONS: SELF CARE INSTRUCTIONS AFTER TOTAL KNEE REPLACEMENT A. You may need to continue a physical therapy program after discharge from the hospital. There are several options available to you. Your doctor will assist you in selecting the best one for you. 1. An out-patient facility 2 to 3 times a week for therapy or home therapy. 2. Continue working on all exercises taught to you in the hospital. Your goals should be to increase bending of your knee to 90 degrees and beyond and to fully straighten your knee. B. You may progress at your own pace from walking with a walker or crutches to a cane; then to no assistive devices. C. Make walking a part of your daily routine. Be up as much as comfortable with rest periods throughout the day. Rest with leg elevation is very important. Use the ice wrap frequently for the first 3-4 weeks. D. There are no restrictions on activities. You may ride in a car, shop, participate in hand launderer and all social activities. E. Wear the long elastic stockings (RUTH hose) 20 hours a day for 2 weeks after surgery. They can be removed several times a day for laundering and for a bath. F. You may shower, no tub baths until cleared by your doctor. SPECIAL CARE INSTRUCTIONS: VERY IMPORTANT TO READ AND REVIEW A. There are a few signs you need to watch for after you are home. Call [facility] if you notice any of the followin. Increased severe knee pain. Some pain is expected especially when you exercise. 2. Increased swelling in your leg or knee; pain or swelling of the calf muscle in either lower leg. 3. Any fluid drainage from the incision. 4. Shortness of breath or chest pain. B. Please call [facility] at if you have any concerns or questions about your operation or recovery. The doctor or his nurse will return your call promptly. C. You must take antibiotics before dental work, bladder, bowel or other surgery. Your doctor will provide you with a permanent care to carry describing this precaution. IMPORTANT: * REMEMBER TO TAKE ASPIRIN, 81 MG, TWICE DAILY FOR 4 WEEKS UNLESS OTHERWISE DIRECTED. THIS IS YOUR BLOOD THINNER. * HIGH RISK PATIENTS MAY BE PRESCRIBED A STRONGER BLOOD THINNER. THIS WILL BE PROVIDED AT DISCHARGE. * CALL IF INCREASED PAIN, REDNESS, DRAINAGE OR FEVER GREATER THAT 101. * WEAR RUTH HOSE 20 HOURS PER DAY FOR 2 WEEKS. * ALEYDA Dressing - This is a large suction dressing covering your incision. This will help pull any excess drainage from the wound and allow your incision to heal properly. You may shower with this if you can keep the unit outside of the shower. If any bleeding or leakage is noted please call your doctor's office. This will remain on your incision for 7 days and then should be removed. This can be done yourself or by the home nursing staff if applicable. The entire unit is disposable once removed. Once removed, keep incision clean and dry. If redness or drainage is noted, please call your surgeon. . FOLLOW UP VISIT: If appointment is not already scheduled: Please call [facility] to make a follow-up appointment for 2 weeks after your surgery at . Stand-Alone Forms: [facility] [employer] Opioid Pain Management, Smoking Cessation Medications and DC Order Prescriptions: New aspirin [Ecotrin Low Strength] 81 mg Tablet,Delayed Release (Dr/Ec) 81 mg PO BID 30 Days Qty: 60 RF: 0 acetaminophen 500 mg Tablet 1,000 mg PO Q8 14 Days Qty: 84 RF: 0 oxycodone 5 mg Tablet 5 - 10 mg PO Q4H MDD 12 tabs PRN (Reason: pain) Qty: 36 RF: 0 sennosides [Senokot] 8.6 mg Tablet 17.2 mg PO HS Qty: 30 RF: 0 Continued lisinopril 20 mg Tablet 20 mg PO QAM RF: 0 spironolactone 25 mg Tablet 12.5 mg PO QAM RF: 0 gabapentin 800 mg Tablet 800 mg PO BID RF: 0 hydrochlorothiazide 25 mg Tablet 12.5 mg PO QAM RF: 0 nifedipine 60 mg Tablet Extended Release 60 mg PO QAM RF: 0 cholecalciferol (vitamin D3) [Vitamin D3] 2,000 unit Tablet 2,000 unit PO QAM RF: 0 Discontinued meloxicam 7.5 mg Tablet 7.5 mg PO QAM RF: 0 oxycodone 10 mg Tablet 10 mg PO QID PRN (Reason: Pain) RF: 0 Discharge Orders: Discharge Order (Routine); Ordered 07/19/19 Ordered By: Chalino Fung Admission Data Admit Date/Time: 07/17/19 10:56 Attending Provider: Gama Thurman Admit Provider: Gama Thurman Primary Care Provider: Isaias Oquendo Other Interventions: Discharge Summary Assessment (RN) Last Done: 07/19/19 08:26 DC Date/Time DO NOT enter until pt leaves facility: 07/19/19 11:16
== END 2019-07-19 11:16 | disposition home or self-care (01) | DRG 470 ==
LOC: ASU 05:40 → 3E 10:56